=== PATIENT | female | born 1960 | race Caucasian/White ===

== ENCOUNTER 2022-10-11 10:05 | Outpatient (RCR) | payer BC, SELFPAY ==
--- NOTE | 2022-10-11 11:06 | PTOPEVAL1 ---
Assessment and note entered by Linda Tejada DPT Evaluation Information Assessment Status Evaluation Diagnosis L shoulder pain Onset Mar 2022 Subjective Information Patient reports pain and range of motion limitations of the L shoulder after she had 2 vaccines in March. She reports she went to the [facility] in June and an MRI and x-ray which showed a possible tear and adhesive capsulitis. She denies numbness or tingling or neck pain. She now has difficulty with dress, opening jars and container, and sleeping on her L side. She had a cortisone injection last week and feels some relief but pain is still present. She is retired Reported Pain Level Pain Score 6: Self Report Assessment PT Clinical Summary Patient is a 62 year old female who presents to PT with L shoulder pain. She demontrates decreased ROM of the L shoulder, decreased strength of the L shoulder, and hypomobility of the L GHJ indicating possible adhesive capulitis. Patient is limited in dressing, sleeping and completing house hold tasks and would benefit from skilled PT to address impairments and return to OF. Plan of Care Interventions Electrical Stimulation,Hot Pack/Cold Pack,Manual Therapy,Neuro Re-education,Patient/Caregiver Educati,Therapeutic Activities,Therapeutic Exercise PT Services Indicated Yes Treatment Frequency and 3x weekly for 12 visits Duration These treatments will address the objective and functional deficits as defined above. The patient will be advanced safely and appropriately in order for the patient to progress towards his/her prior level of function. Additional exercises will be introduced and as well as a comprehensive home exercise program upon discharge, if needed, ?to ensure carryover of functional gains achieved in the clinic. This treatment plan has been reviewed and agreement upon by the patient.
--- NOTE | 2022-11-01 14:40 | PTOPEVAL1 ---
Assessment and note entered by Nahum Irene Evaluation Information Assessment Status Progress Diagnosis left shoulder pain Onset 03/18/22 Subjective Information Pt. reports that her pain levels are lower today. She states that she will get an occasional disturbance in regards to pain. She reports that she notices overall improvement in mobility. Reported Pain Level Pain Score 2: Self Report Pain Score 2: Self Report Assessment PT Clinical Summary Pt. demonstrates progress towards all goals. She remains movtivated and subjective pain reports are decreased on this date. Continue with current POC to optimize strength and mobility at the left shoulder. Plan of Care Interventions Electrical Stimulation,Hot Pack/Cold Pack,Manual Therapy,Neuro Re-education,Patient/Caregiver Educati,Therapeutic Activities,Therapeutic Exercise PT Services Indicated Yes Treatment Frequency and Continue with 2 remaining sessions on pt. POC Duration These treatments will address the objective and functional deficits as defined above. The patient will be advanced safely and appropriately in order for the patient to progress towards his/her prior level of function. Additional exercises will be introduced and as well as a comprehensive home exercise program upon discharge, if needed, ?to ensure carryover of functional gains achieved in the clinic. This treatment plan has been reviewed and agreement upon by the patient.
--- NOTE | 2022-11-06 09:54 | PTOPDC ---
Assessment and note entered by Linda Tejada DPT Evaluation Information Assessment Status Progress Diagnosis left shoulder pain Onset 03/18/22 Subjective Information Patient reports overall good improvement since starting PT. She reports she has been able to open jars and dress with no issues. She reports continued difficulty with lifting over head but reports that continues to improve. She reports she has also been able to return to her gym classes. Reported Pain Level Pain Score 1: Self Report Assessment PT Clinical Summary Patient has been seen for 12 visits of skilled PT with great progress towards all goals. Patient demonstrates improved L shoulder strength and ROM and well as reported decrease in pain. Patient is independent with HEP and is agreeable to DC at this time. Plan of Care PT Services Indicated No
== END 2022-11-06 10:39 | disposition home or self-care (01) ==
LOC: CHSPT 10:05
PROVIDERS: Visit Provider Nurse Practitioner Family
DX: M75.02 Adhesive capsulitis of left shoulder (principal)
CPT/HCPCS: 97014; 97110; 97140; 97161; G0283

== ENCOUNTER 2024-03-26 08:31 | Outpatient (RCR) | payer BC, SELFPAY ==
--- NOTE | 2024-03-26 09:52 | OPREHPOC ---
Outpatient Therapy Plan of Care This is a Multidisciplinary Plan of Care that may contain components documented by all disciplines (PT, OT, and ST.) PT Problem 1 PT Problem #1 Knowledge Deficit PT Goal 1 Goal / Goal Update The patient will be independent in a home exercise program. Target Visit 4 PT Problem 2 PT Problem #2 Pain PT Goal 1 Goal / Goal Update The patient will report no greater than 2/10 low back and left pain with standing and walking 20+ minutes. Target Visit 10 PT Problem 3 PT Problem #3 Impaired Functional Mobil PT Goal 1 Goal / Goal Update 1. The patient will demonstrate 20% or less self perceived disability per the Back Index questionnaire. 2. The patient will be able to ambulate 1,200 feet with 2/10 or less low back pain during the 6 minute walk test to improve community ambulation. 3. The patient will report ability to perform master at arms for 20 minutes without increased low back pain. Target Visit 10 PT Problem 4 PT Problem #4 Impaired Strength PT Goal 1 Goal / Goal Update 1. The patient will improve left hip abduction strength to 4/5 or greater to support the pelvis/ spine with walking. 2. The patient will improve lumbar extension strength to 4/5 or greater to support the pelvis/ spine with walking. Target Visit 10
--- NOTE | 2024-03-26 09:52 | PTOPEVAL1 ---
Assessment and note entered by Shantelle Oliver, PT Evaluation Information Assessment Status Evaluation ICD-10 Condition Codes (PT) Pain in low back M54.50 Onset 03/21/24 Subjective Information Michelle Peacock reports she has been having lower back and left hip pain since 2019 and x-rays showed mild arthritis. She has had a worsening pain over the last few months. She was on vacation recently and could not walk more than 1-2 blocks without pain. She had to start using a walking stick which does give her some support. She had x- rays done on 03/25/24 but has not received the results. She is also having catching in the left hip with prolonged walking. 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 She notes activities with bending are worse and walking on the treadmill is painful. She has also been diagnosed with osteopenia in her hips and osteoporosis in her back. Reported Pain Level Pain Score 3: Self Report Assessment PT Clinical Summary Michelle Peacock presents with chronic lower back pain with a worsening over the last few months. 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 She objectively demonstrates decreased and painful lumbar AROM, decreased core and left > right hip strength, decreased left > right hamstring and piriformis flexibility, and positive special tests indicating possible lumbar nerve root irritation. She will benefit from skilled PT to address these limitations. Plan of Care Interventions Electrical Stimulation,Hot Pack/Cold Pack,Manual Therapy,Mechanical Traction,Neuro Re-education, Patient/Caregiver Educati,Therapeutic Activities, Therapeutic Exercise PT Services Indicated Yes Treatment Frequency and 2 times a week for 10 visits Duration These treatments will address the objective and functional deficits as defined above. The patient will be advanced safely and appropriately in order for the patient to progress towards his/her prior level of function. Additional exercises will be introduced and as well as a comprehensive home exercise program upon discharge, if needed, ?to ensure carryover of functional gains achieved in the clinic. This treatment plan has been reviewed and agreement upon by the patient.
--- NOTE | 2024-04-23 10:13 | OPREHPOC ---
Outpatient Therapy Plan of Care This is a Multidisciplinary Plan of Care that may contain components documented by all disciplines (PT, OT, and ST.) PT Problem 1 PT Problem #1 Knowledge Deficit PT Goal 1 Goal / Goal Update The patient will be independent in a home exercise program. Target Visit 4 Progress Met PT Problem 2 PT Problem #2 Pain PT Goal 1 Goal / Goal Update The patient will report no greater than 2/10 low back and left pain with standing and walking 20+ minutes. Target Visit 10 Progress Met PT Problem 3 PT Problem #3 Impaired Functional Mobil PT Goal 1 Goal / Goal Update 1. The patient will demonstrate 20% or less self perceived disability per the Back Index questionnaire. 2. The patient will be able to ambulate 1,200 feet with 2/10 or less low back pain during the 6 minute walk test to improve community ambulation. 3. 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 Target Visit 10 Progress Met PT Problem 4 PT Problem #4 Impaired Strength PT Goal 1 Goal / Goal Update 1. The patient will improve left hip abduction strength to 4/5 or greater to support the pelvis/ spine with walking. 2. The patient will improve lumbar extension strength to 4/5 or greater to support the pelvis/ spine with walking. Target Visit 10 Progress Met
--- NOTE | 2024-04-23 10:13 | PTOPDC ---
Assessment and note entered by Shantelle Oliver, PT Evaluation Information Assessment Status Discharge ICD-10 Condition Codes (PT) Pain in low back M54.50 Onset 03/21/24 Subjective Information Michelle Peacock reports that her back is feeling much better. She has been able to return to her previous activity level including working out at the local gym several times a week. She is now sleeping without disturbance from pain as well. Reported Pain Level Pain Score 2: Self Report Pain Score 2: Self Report Assessment PT Clinical Summary Michelle Peacock has completed 10 skilled PT visits for low back pain. She is reporting mostly resolved pain and ability to sleep without disturbance and perform all previous activity without pain. She is working out on her own at [employer] almost daily. She demonstrates improved and pain free lumbar AROM, improved core and hip strength, and improved hamstring flexibility. She has met all goals and will be discharged. Plan of Care PT Services Indicated No
== END 2024-04-23 14:19 | disposition home or self-care (01) ==
LOC: CHSPT 08:31
PROVIDERS: Visit Provider Physician Assistant
DX: M54.50 Low back pain, unspecified (principal)
CPT/HCPCS: 97014; 97110; 97112; 97140; 97161; G0283

== ENCOUNTER 2025-05-22 08:11 | Outpatient (CLI) | payer BC, SELFPAY ==
[2025-05-22 08:37] LABS: Hematocrit 33.4 % (35.0-49.0); Hemoglobin 10.8 g/dL (12.0-15.0); Mean Corpuscular HGB Conc 32.3 g/dL (32-36); Mean Corpuscular Hemoglobin 30.2 pg (27.0-31.0); Mean Corpuscular Volume 93.3 fL (78.0-102.0); Platelet Count Result 257 K/mm3 (150-420); Red Blood Count 3.58 M/mm3 (4.20-5.40); White Blood Count 4.9 K/mm3 (4.8-10.8)
[2025-05-22 09:48] LABS: Alanine Aminotransferase 23 U/L (6-35); Albumin Level 4.6 g/dL (3.5-5.1); Alkaline Phosphatase 64 U/L (38-126); Anion Gap 9 mmol/L (4-12); Aspartate Amino Transferase 29 U/L (14-36); Bilirubin,Total 0.3 mg/dL (0.2-1.3); Blood Urea Nitrogen 20 mg/dL (7-17); Calcium 9.5 mg/dL (8.4-10.2); Carbon Dioxide 27 mmol/L (22-30); Chloride 110 mmol/L (98-107); Cholesterol 115 mg/dL (0-200); Estimated Glomerular Filt Rate 52; Glucose 62 mg/dL (65-110); HDL Direct 54 mg/dL; Osmolality Calculated 302 mOsm/kg (285-295); Potassium 4.7 mmol/L (3.4-5.0); Sodium 146 mmol/L (137-145); Total Protein 6.8 g/dL (6.3-8.2); Triglycerides 60 mg/dL (<150)
[2025-05-22 09:54] LABS: Hemoglobin A1C 7.4 % (<5.7)
[2025-05-22 10:01] LABS: MALB Creatinine Ratio 13.9 mg/g (0-30)
== END 2025-05-22 08:12 | disposition home or self-care (01) ==
PROVIDERS: PCP Physician Assistant; Visit Provider Physician Assistant
DX: E11.9 Type 2 diabetes mellitus without complications (principal)
CPT/HCPCS: 36415; 80053; 80061; 82043; 83036; 85027

== ENCOUNTER 2025-06-16 11:30 | Outpatient (CLI) | payer BC, SELFPAY ==
--- OUTSIDE RECORDS SUMMARY | 2025-06-16 12:15 | XMS_ITS | Encounter Summary ---
Author Organization [facility] Address [address] [place] [id number] Care Team Providers Care Driller Operator Name Role Phone Anel Boyce MD Primary Care Provider Unavailab le Encounter Details Date Type Department Care Team (Late st Contact Info) Description 11/23/2018 Abstract [facility] [address] [address] , Generic Conversion, Social History Tobacco Use Types Packs/Day Years Used Date Smoking Tobacco: Never Assessed Comments Unknown Sex and Gender Information Value Date Recorded Sex Assigned at Female 05/29/2025 10:16 AM DRY WALL PLASTERER Legal Sex Female 5:58 PM DRY WALL PLASTERER Gender Identity Not on file Sexual Orientation Not on file documented as of this encounter Plan of Treatment Not on file documented as of this encounter Visit Diagnoses Not on filedocumented in this encounter Care Teams Driller Operator Relationship Specialty Start Date End Date Anel Boyce MD PCP - General FAMILY PRACTICE 03/05/19 documented as of this encounter
--- OUTSIDE RECORDS SUMMARY | 2025-06-16 12:15 | XMS_ITS | Encounter Summary ---
Author Organization [facility] Address [address] [place] [id number] Care Team Providers Care Clinical Trial Head Name Role Phone Anel Boyce MD Primary Care Provider Unavail le Encounter Details Date Type Department Care Team (Late st Contact Info) Description 10/05/2022 [employer] Message Enc [place] [phone] Aisha Harris, [facility] [address] [place] [id number] Visit Follow Up Social History Tobacco Use Types Packs/Day Years Used Date Smoking Tobacco: Never Smokeless Tobacco: Never Alcohol Use Standard Drinks/Week Comments Not Currently 0 (1 standard drink = 0.6 oz pure alcohol) A glass of wine or daiquiri once in a while Comments No Sex and Gender Information Value Date Recorded Sex Assigned at Female 05/29/2025 10:16 AM MICROSOFT EXCHANGE 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 No / Unsure 10/04/2022 2:32 PM CDT documented as of this encounter Plan of Treatment Not on file documented as of this encounter Visit Diagnoses Not on filedocumented in this encounter Care Teams Clinical Trial Head Relationship Specialty Start Date End Date Anel Boyce MD PCP - General FAMILY PRACTICE 03/05/19 documented as of this encounter
--- OUTSIDE RECORDS SUMMARY | 2025-06-16 12:15 | XMS_ITS | Clinical Summary ---
Author Organization [facility] Address Formerly [facility] [place] [address] Care Team Providers Care Falafel Cart Cook Name Role Phone Anel Boyce MD Primary Care Provider Unavailab le Allergies Active Allergy Reactions Criticality Noted Date Comments Sulfa Antibiotics Vomiting 08/29/2022 Severe vomiting Medications aspirin EC 81 MG tablet 6 Active atorvastatin (LIPITOR) 10 MG tablet 6 Active Turmeric 500 MG Cap 1 Active Calcium-Magnes ium-Vitamin D (CALCIUM+D3 GRADUAL RELEASE) 600-40-500 MG-MG-UNIT TABLET SR 24 HR Active Glucose Blood (RELION CONFIRM/MICRO TEST) test strip ReliOn Confirm/micro Test In Vitro [id number] 6 Active insulin aspart (NOVOLOG) 100 UNIT/ML injection (VIAL) Inject 6-8 Units into the skin see administration instructions. TAKES 6-8 UNITS WITH BIGGEST MEAL 5 Active BASAGLAR KWIKPEN 100 UNIT/ML injection (PEN) Inject 30 Units into the skin nightly at bedtime. 5 Active RELION PEN NEEDLE 31G/8MM 31G X 8 MM Misc USE PEN NEEDLE TWICE DAILY 3 Active Insulin Syringe-Needle U-100 31G X 5/16 1 ML Misc ReliOn Insulin Syringe 31G X 5/16 1 [id number] 6 Active lisinopril-hyd roCHLOROthiazi de (ZESTORETIC) 20-12.5 MG tablet Take 1 tablet by mouth daily. 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 04/10/2023 Adhesive capsulitis of left shoulder 10/05/2022 Encounters Date Type Department Care Team Description 05/29/2025 10:19 AM SUPERVISOR BENZENE REFINING - 05/29/2025 11:59 PM SUPERVISOR BENZENE REFINING Hospital Encounter [facility] [address] [place] [address] Michelle Brown NP Discharge Disposition: Home or Self Care (Routine Discharge) 05/29/2025 Travel from Last 3 Months Family History Medical History Relation Comments Alcohol Abuse Brother Alcohol Abuse Father Diabetes Father Early Father Relation Status Comments Brother Father Social History Tobacco Use Types Packs/Day Years Used Date Smoking Tobacco: Never Smokeless Tobacco: Never Alcohol Use Standard Drinks/Week Comments Not Currently 0 (1 standard drink = 0.6 oz pure alcohol) A glass of wine or daiquiri once in a while Comments No Sex and Gender Information Value Date Recorded Sex Assigned at Female 05/29/2025 10:16 AM SUPERVISOR BENZENE REFINING Legal Sex Female 5:58 PM SUPERVISOR BENZENE REFINING Gender Identity Not on file Sexual Orientation Not on file Last Filed Vital Signs Vital Sign Reading Time Taken Comments Blood Pressure 149/64 10/10/2022 8:55 AM CDT Pulse 61 10/10/2022 8:55 AM CDT Temperature 36.3 C (97.4 F) 10/10/2022 8:55 AM CDT Respiratory Rate 18 10/10/2022 8:55 AM CDT Oxygen Saturation 100% 10/10/2022 8:55 AM CDT Inhaled Oxygen Concentration - - Weight 83.5 kg (184 lb) 03/28/2023 1:57 PM CDT Height 175.3 cm (5' 9) 03/28/2023 1:57 PM CDT Body Mass Index 27.17 03/28/2023 1:57 PM CDT Plan of Treatment Health Maintenance Due Date Last Done Comments Cervical Cancer Screening Pap Smear (Age 30 to 64) Every 3 Years 1961 Annual Physical 02/12/1964 Hepatitis C 1979 Cervical Cancer Screening Pap with HPV Testing (Age 30 to 64) Every 5 Years 1991 Cervical Cancer Screening with HPV 1991 COVID-19 Vaccine ( season) 2025 03/02/2022, 04/16/2021, 09/01/2020, Additional history exists Influenza Adult (#1) 2025 03/19/2023, 04/12/2022, 05/03/2021, Additional history exists Mammogram Screening 05/29/2027 05/29/2025, 05/29/2024, 05/24/2023, Additional history exists DTaP, Tdap and Td Vaccines (2 - Td or Tdap) 04/12/2032 04/12/2022 Colorectal Cancer Screening Colonoscopy (10 Years) 10/10/2032 10/10/2022, 10/10/2022 RSV Immunization or 60+ Years (1 - 1-dose 75+ series) 02/12/2036 Pneumococcal Vaccine: 50+ Years Completed 04/12/2022 Zoster Vaccines Completed 04/12/2022, 08/30/2021 Hepatitis A Vaccines Aged Out No long er eligible based on patient's age to complete this topic Meningococcal B Vaccine Aged Out No l onger eligible based on patient's age to complete this topic Meningococcal Vaccine Aged Out No jc blu eligible based on patient's age to complete this topic RSV Immunizations Under 20 Months Aged Out No longer eligible based on patient's age to complete this topic Procedures Procedure Name Priority Date/Time Associated Diagnosis Comments MG SCREENING W AMEENA NGUYEN DIGI Routine 05/29/2025 10:32 AM SUPERVISOR BENZENE REFINING Visit for screening mammogram COLONOSCOPY 10/10/2022 6:48 AM CDT from Last 3 Months or Most Recently Relevant to Health Maintenance Results * MG SCREENING W AMEENA GNUYEN DIGI (05/29/2025 10:32 AM SUPERVISOR BENZENE REFINING) Anatomical Region Laterality Modality Breast Bilateral Mammography 06/01/2025 8:58 AM SUPERVISOR BENZENE REFINING Impressions 06/01/2025 8:59 AM SUPERVISOR BENZENE REFINING IMPRESSION: No suspicious change since the previous exams. Recommendation: 1: Routine Screening Bilateral in 1 Year Assessment: ACR BI-RADS 2 - BENIGN FINDING(S) Ordered By: MICHELLE BROWN Interpreted By: Femi Conrad MD, 06/01/2025 8:58 AM Narrative 06/01/2025 8:59 AM SUPERVISOR BENZENE REFINING [address] [place] [address] Examination: Digital screening mammogram with CAD. Clinical history: Asymptomatic patient presents for routine screening. Comparison: 05/29/2024, 05/24/2023, 04/21/2022, 04/07/2021. Technique: Bilateral digital mammograms. The exam was interpreted with the use of a computer-aided detection (CAD) system. Additional 3-D tomosynthesis images were acquired. Tissue density: The breasts are heterogeneously dense which may obscure small masses. Findings: The breast tissue is heterogeneously dense. The dense tissue may obscure some lesions mammographically. Benign-appearing calcification noted. No suspicious mass, microcalcification or area of architectural distortion can be identified. From a mammographic standpoint, routine followup in one year would seem adequate. us Michelle Brown PROBATE PARALEGAL MAMMO Final Resul t * Colonoscopy (10/10/2022 6:48 AM CDT) Jasbir Jefferson MD GI PROCEDURE ORDERABLES Final Result from Last 3 Months or Most Recently Relevant to Health Maintenance Insurance [facility] Care Teams Falafel Cart Cook Relationship Specialty Start Date End Date Anel Boyce MD PCP - General FAMILY PRACTICE 03/05/19
[2025-06-19 14:08] LABS: GAD-65 Antibody 7.0 U/mL (0.0-5.0)
== END 2025-06-16 11:31 | disposition home or self-care (01) ==
LOC: CHSLAB 11:34
PROVIDERS: PCP Physician Assistant; Visit Provider Physician Assistant
DX: D64.9 Anemia, unspecified (principal)
CPT/HCPCS: 84681; 86341